=== PATIENT | male | born 1975 | race Caucasian/White ===

== ENCOUNTER 2022-09-05 18:26 | Emergency (ER) | payer SELFPAY ==
[~2022-09-05] VITALS: Ht 180.3 cm; Wt 74.8 kg
--- NOTE | 2022-09-05 18:26 | NUR ---
Patient arrived EMS. 18g IV right hand intact upon arrival. Patient was given ASA and [employer] ADMINISTRATIVE SECRETARY by EMS. Patient with heavy ETOH onboard
[2022-09-05 18:51] VITALS: BP 119/68
--- NOTE | 2022-09-05 19:10 | NUR ---
at bedside for patient eval
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
[2022-09-05 19:20] LABS: BASOPHIL # 0.1 10^3/uL (0.0-0.1); EOSINOPHIL # 0.4 10^3/uL (0.0-0.2); EOSINOPHIL % 5.7 % (0.0-5.0); LYMPHOCYTES # 3.55 10^3/uL1 (1.0-4.8); LYMPHOCYTES % 46.3 % (24.0-44.0); MEAN CORP HGB 31.4 pg (26-34); MONOCYTES # 0.6 10^3/uL (0.3-0.8); MONOCYTES % 7.8 % (5.0-12.0); NEUTROPHILS % 39.1 % (41.0-85.0); PLATELET COUNT 241 10^3/uL (150-400); RED CELL DISTRIBUTION WIDTH 12.3 % (11.5-14.5)
--- NOTE | 2022-09-05 19:29 | DIREP ---
PROCEDURE:XRAY ACUTE ABD INCL UPRIGHT CHEST TECHNIQUE :A single PA view of the chest is provided. Flat and upright views of the abdomen are also provided. COMPARISON:None. INDICATIONS:chest and abdominal pain FINDINGS: LUNGS/PLEURA:No significant pulmonary parenchymal abnormalities. No effusions. No pneumothorax. VASCULATURE:Normal. Unremarkable pulmonary vasculature. CARDIAC:Normal. No cardiac silhouette abnormality or cardiomegaly. MEDIASTINUM:Normal. No visible mass or adenopathy. BONES:Normal. No fracture or visible bony lesion. OTHER:Negative. BOWEL GAS PATTERN:Normal. No air-fluid levels. FREE AIR:None. CALCIFICATIONS:None significant. OTHER:Negative. CONCLUSION:No acute disease. Dictated by: Taiwo Astudillo MD on 09/05/2022 at 07:27 PM
[2022-09-05] MEDS ORDERED: MYLANTA PO STA (19:54)
[2022-09-05] MEDS ORDERED: MYLANTA ONE (19:59)
[2022-09-05 20:00] VITALS: BP 125/66
[2022-09-05 20:37] LABS: CARBON DIOXIDE 22.9 mmol/L (20.0-32)
[2022-09-05 21:05] VITALS: BP 125/75
--- NOTE | 2022-09-06 08:48 | PCM.EKG ---
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
== END 2022-09-05 21:31 | disposition home or self-care (01) ==
LOC: ER 18:26
DX: F10.129 Alcohol abuse with intoxication, unspecified (principal); R07.89 Other chest pain; K86.1 Other chronic pancreatitis; F17.210 Nicotine dependence, cigarettes, uncomplicated; I10 Essential (primary) hypertension; F12.90 Cannabis use, unspecified, uncomplicated
CPT/HCPCS: 36415; 74021; 80053; 82077; 82150; 82550; 82553; 83690; 83880; 84484; 85025; 85610; 85730; 93005; 99285